=== PATIENT | female | born 1985 | race Caucasian/White ===

== ENCOUNTER → 2020-08-04 11:32 | Outpatient (CLI) | payer BC, SELFPAY ==
--- NOTE | ~2020-08-04 | US_ITS ---
EXAMINATION: US thyroid EXAM DATE: 08/04/2020 11:53 INDICATION: Thyroid nodule. TECHNIQUE: Multiple grayscale and Doppler images of the thyroid were obtained (by a technologist who performed the scan) and subsequently reviewed. Individual nodules and recommendations may be reporte d in accordance with TI-RADS system as designated by the 2017 ACR White Paper TI-RADS committee. The re is no prior study for comparison. FINDINGS: Right thyroid lobe measures 3.9 x 1.3 x 1.2 cm and the left measuring 4.1 x 1.1 x 1.1 cm. Relatively homogeneous thyroid echogenicity without focal nodule identified. Dimensions are within normal size l imits. IMPRESSION: 1. Unremarkable thyroid ultrasound exam. Reviewed, dictated and finalized at location G.
== END ==
PROVIDERS: PCP Internal Medicine; Visit Provider Nurse Practitioner
DX: E04.1 Nontoxic single thyroid nodule (principal)
CPT/HCPCS: 76536

== ENCOUNTER 2020-09-15 11:05 | Outpatient (CLI) | payer BC, SELFPAY ==
--- NOTE | ~2020-09-15 | MR_ITS ---
EXAMINATION: MR brain/brain stem wo/w con EXAM DATE: 09/15/2020 12:31 INDICATION: Abnormal gait and mobility. TECHNIQUE: Magnetic resonance imaging (MRI) of the brain/brain stem obtained without contrast. Sagit sadia T1, axial diffusion, gradient echo (T2*), T1, T2, FLAIR sequences obtained. Patient was then inj ected intravenous Multihance contrast, I'm unable to find a dose at this time but an addendum can be added. Axial and coronal postcontrast T1 weighted sequences obtained. There is no prior study for co mparison. FINDINGS: There are no areas of restricted diffusion to suggest acute infarction. There is no acute hemorrhage seen on the T2*, a hemosiderin sensitive sequence. No intraparenchymal brain mass. The ve ntricles are normal in size. There are no extra-axial collections. Flow voids are seen in the cereb ral arteries on the T2-weighted sequences consistent with their expected patency. The orbits are unr emarkable. Soft tissue is unremarkable. There are no areas of abnormal enhancement on the post con trast images. IMPRESSION: 1. Unremarkable brain MRI exam. Reviewed, dictated and finalized at location G.
[2020-09-15 11:55] LABS: Estimated Glomerular Filt Rate > 60
== END 2020-09-15 11:06 | disposition home or self-care (01) ==
LOC: ANHIMG 11:09
PROVIDERS: PCP Internal Medicine; Visit Provider Nurse Practitioner
DX: R26.89 Other abnormalities of gait and mobility (principal)
CPT/HCPCS: 70553; A9577

== ENCOUNTER 2020-09-15 18:40 | Emergency (ER) | payer BC, SELFPAY ==
[2020-09-15 18:59] VITALS: BP 121/81; PULSE 77; RESP 20; TEMP 37.4; O2SAT 100
--- NOTE | 2020-09-15 19:01 | ED.EXTPRO ---
HPI - Extremity Problem General Chief complaint: Extremity Problem,Nontraumatic Stated complaint: L HAND THROBBING Time Seen by Provider: 09/15/20 19:15 Source: patient and RN notes reviewed Mode of arrival: ambulatory Limitations: no limitations History of Present Illness HPI Narrative: 34-year-old female presents with concern for arm pain after an IV infiltration today. Reports she had a IV in the left antecubital today while getting MRI. Reports injection was going through the IV when the IV infiltrated. Reports a new IV was started and the infusion was completed through a new IV. She reports pain proximal to the infiltration site, tingling in the left lower arm and hand. MD Complaint: extremity pain Related Data Home Medications Medication Instructions Recorded Confirmed diazepam 09/15/20 eszopiclone mg 09/15/20 fluoxetine mg 09/15/20 nicotine 09/15/20 trazodone 09/15/20 Allergies Allergy/AdvReac Type Severity Reaction Status Date / Time EGG WHITES Allergy Mild Anaphylactic Uncoded 09/15/20 18:59 Shock Review of Systems Review of Systems: Narrative: CONSTITUTIONAL: Denies malaise, chills, sweats, or fever. CARDIOVASCULAR: Denies chest pain, palpitations, or edema. RESPIRATORY: Denies cough or dyspnea. SKIN: Denies open skin, ulcerations. Reports pain, swelling and bruising to the left upper arm MUSCULOSKELETAL: Denies musculoskeletal pain NEUROLOGIC: Denies numbness, weakness. Reports tingling in the left hand All systems reviewed & are unremarkable except as noted in HPI and below PMFSH Comments At time of signature, agree with nursing past medical, surgical, social and family history. There is no relevant family history pertinent to the presenting complaint Exam Narrative: Exam Narrative: GENERAL: Well-appearing, well-nourished, and in no acute distress. HEAD: Normocephalic, atraumatic. EYES: PERRLA, conjunctivae clear, and EOMI. ENT: Mucous membranes moist. NECK: Supple. No lymphadenopathy CHEST: Clear to auscultation. No respiratory distress. HEART: Regular rate and rhythm. SKIN: Warm, dry. Mild hematoma proximal to the left antecubital space. No other bruising, swelling noted. No open skin or ulcerations noted NEURO: Alert and oriented x3. PSYCH: Normal mood and affect Course Course Emergency Course: Patient is aware of diagnosis, understands and agrees to treatment plan. Anticipatory guidance given. Patient agrees to follow-up as directed and is aware of reasons to seek care at the emergency department. Portions of this record may have been created with voice recognition software Vital Signs Vital signs: Reviewed. MDM - Extremity (Nontraumatic) MDM Narrative Medical decision making narrative: Exam findings show no acute concerns or changes; patient is non-toxic appearing and is in no distress. Patient is appropriate for outpatient treatment and follow-up. Critical Care Time Critical Care Time Critical Care Time: No Discharge Plan Discharge Clinical Impression: Arm pain Qualifiers: Laterality: left Qualified Code(s): M79.602 - Pain in left arm IV infiltration Qualifiers: Encounter type: initial encounter Qualified Code(s): T80.1XXA - Vascular complications following infusion, transfusion and therapeutic injection, initial encounter Patient Disposition: Home, Self-Care Condition: Stable Instructions: IV Infiltration (ED) Additional Instructions: Apply ice to the infiltration site, elevate. You may use Tylenol or ibuprofen for pain. If you develop any open sores, fever, decreased circulation in your lower arm or hand you should go to the emergency room. Follow-up with the provider of the MRI tomorrow if symptoms do not improve. Prescriptions: No Action fluoxetine 40 mg capsule RF: 0 trazodone 50 mg tablet RF: 0 diazepam 2 mg tablet RF: 0 nicotine 21 mg/24 hr patch 24 hour RF: 0 eszopiclone 3 mg tablet
== END 2020-09-15 19:39 | disposition home or self-care (01) ==
PROVIDERS: Emergency Provider Nurse Practitioner; PCP Internal Medicine
DX: M79.632 Pain in left forearm (principal); T80.1XXA Vascular complications following infusion, transfusion and therapeutic injection, initial encounter
CPT/HCPCS: 99202; G0463

== ENCOUNTER 2020-09-19 17:54 | Emergency (ER) | payer BC, SELFPAY ==
--- NOTE | ~2020-09-19 | XR_ITS ---
EXAMINATION: XR ankle LT min 3V DATE: 09/19/2020 18:17 INDICATION: Left ankle pain, initial encounter TECHNIQUE: Anteroposterior, lateral, mortise, and additional oblique view of the ankle were obtained. COMPARISON: None. FINDINGS: There is an acute, traumatic, closed, oblique fracture of the distal fibula which extends t o the level of the tibial plafond. There are 2 mm of lateral displacement of the distal fracture frag ment. Ankle soft tissue swelling is present. The remaining osseous structures are unremarkable. IMPRESSION: 1. Oblique fracture of the distal fibula extending to the level of the tibial plafond. Reviewed, dictated and finalized at location A. IMPRESSION: 1. Oblique fracture of the distal fibula extending to the level of the tibial p suri.
[2020-09-19 18:02] VITALS: BP 128/75; PULSE 92; RESP 20; TEMP 37.6; O2SAT 99
--- NOTE | 2020-09-19 19:07 | ED.GENADULT ---
HPI - General Adult General Chief complaint: Extremity Injury, Lower Stated complaint: left leg injury Time Seen by Provider: 09/19/20 18:19 Source: patient, family and RN notes reviewed Mode of arrival: ambulatory Limitations: no limitations History of Present Illness HPI narrative: Patient is a 34-year-old female who presents to emergency department for evaluation of left ankle pain after injuring the ankle while rollerskating patient notes aching swelling pain to the lateral aspect of the left ankle patient denies other injuries or complaints has not had anything for pain presents per private vehicle in no distress Related Data Home Medications Medication Instructions Recorded Confirmed diazepam 09/15/20 eszopiclone mg 09/15/20 fluoxetine mg 09/15/20 nicotine 09/15/20 trazodone 09/15/20 Allergies Allergy/AdvReac Type Severity Reaction Status Date / Time EGG WHITES Allergy Mild Anaphylactic Uncoded 09/19/20 18:04 Shock Review of Systems Review of Systems: All systems reviewed & are unremarkable except as noted in HPI and below PMFSH Past Medical History Medical History Anxiety Depression Social History Social History Gender identity (if verbalized by the patient): Female Exam Narrative: GENERAL: Well-appearing, well-nourished, and in no acute distress. HEAD: Normocephalic, atraumatic. EYES: PERRLA and EOMI. ENT: Nares clear, no rhinorrhea or epistaxis. Mucous membranes moist. CHEST: Clear to auscultation. No respiratory distress. No wheezes rales or rhonchi HEART: Regular rate and rhythm. No murmur heard. EXTREMITIES: Bruising swelling and tenderness of the lateral left ankle joint SKIN: Warm, dry, no rash. NEURO: No focal deficits. Alert and oriented x3. Neurovascularly intact PSYCH: Normal mood and affect. Course Course Emergency Course: Patient in the room no distress aware of case findings treatment plan diagnosis and discussion of orthopedic surgeon placed an OCL splint and crutches Consultations Consultation #1: Spoke with Dr. Zhong who will follow the patient in clinic Date: 09/19/20 Vital Signs Vital signs: Vital Signs Temperature 99.6 F 09/19/20 18:02 Pulse Rate 92 09/19/20 18:02 Respiratory Rate 20 09/19/20 18:02 Blood Pressure 128/75 09/19/20 18:02 Pulse Oximetry 99 09/19/20 18:02 Temperature 99.6 F 09/19/20 18:02 Pulse Rate 92 09/19/20 18:02 Respiratory Rate 20 09/19/20 18:02 Blood Pressure 128/75 09/19/20 18:02 Pulse Oximetry 99 09/19/20 18:02 Procedures Orthopedic Splinting/Casting Injury #1: Splinting/Casting Date: 09/19/20 Splinting/Casting Time: 19:13 Side: left Lower Extremity Immobilizer: posterior splint Splint: customized in ED OCL: short leg Pre-Procedure Neuro Vascular Exam: normal Post-Procedure Neuro Vascular Exam: normal Other Orthopedic Equipment: crutches Medical Decision Making MDM Narrative Medical decision making narrative: Patients injury or pain is consistent with musculoskeletal etiology. No signs of neurological or vascular compromise on exam. Compartments and tissues are soft without signs of compartment syndrome. Pain is felt appropriate for further evaluation on an outpatient basis. Vital Signs Vital Signs: Vital Signs Temperature 99.6 F 09/19/20 18:02 Pulse Rate 92 09/19/20 18:02 Respiratory Rate 20 09/19/20 18:02 Blood Pressure 128/75 09/19/20 18:02 Pulse Oximetry 99 09/19/20 18:02 Temperature 99.6 F 09/19/20 18:02 Pulse Rate 92 09/19/20 18:02 Respiratory Rate 20 09/19/20 18:02 Blood Pressure 128/75 09/19/20 18:02 Pulse Oximetry 99 09/19/20 18:02 Imaging Data Radiologist's impression: ITS Impressions Ankle X-Ray 09/19/20 18:24 IMPRESSION: 1. Oblique fracture of the distal f
[2020-09-19 19:22] VITALS: BP 137/86; PULSE 77; RESP 18; TEMP 37.2; O2SAT 100
[2020-09-19] MEDS: HYDROcodone/acetaminophen (*CRX) 5-325 MG TABLET 1 TAB PO (19:33)
== END 2020-09-19 20:40 | disposition home or self-care (01) ==
PROVIDERS: Emergency Provider Emergency Medicine; PCP Internal Medicine
DX: S82.832A Other fracture of upper and lower end of left fibula, initial encounter for closed fracture (principal); F41.9 Anxiety disorder, unspecified; F32.9 Major depressive disorder, single episode, unspecified; Y93.51 Activity, roller skating (inline) and skateboarding; V00.121A Fall from non-in-line roller-skates, initial encounter
CPT/HCPCS: 29515; 73610; 99284; A9270

== ENCOUNTER 2020-09-20 00:53 | Emergency (ER) | payer BC, SELFPAY ==
[2020-09-20 00:54] VITALS: BP 128/78; PULSE 91; RESP 18; TEMP 36.9; O2SAT 98
--- NOTE | 2020-09-20 01:01 | ED.GENADULT ---
HPI - General Adult General Chief complaint: Unspecified Stated complaint: Toes numb, worsening pain, seen earlier Time Seen by Provider: 09/20/20 01:01 History of Present Illness HPI narrative: 35 yo female presents to the ED for ankle pain. She was seen here earlier today for an ankle fracture. She had a splint placed and was prescribed norco. She now returns for continued pain. She unwrapped her splint which only made her pain worse. Related Data Home Medications Medication Instructions Recorded Confirmed diazepam 09/15/20 eszopiclone mg 09/15/20 fluoxetine mg 09/15/20 nicotine 09/15/20 trazodone 09/15/20 Allergies Allergy/AdvReac Type Severity Reaction Status Date / Time EGG WHITES Allergy Mild Anaphylactic Uncoded 09/19/20 18:04 Shock Review of Systems Review of Systems: All systems reviewed & are unremarkable except as noted in HPI and below Respiratory: Respiratory: Denies dyspnea Neurologic: Reports numbness and Denies weakness PMFSH Past Medical History Medical History Anxiety Depression Social History Social History Gender identity (if verbalized by the patient): Female Exam Const: General: healthy appearing, no acute distress and alert Orientation/consciousness: patient oriented x3 HENMT: Head: normal to inspection Neck: Neck: normal visual inspection Resp: Effort & Inspection: normal respiratory effort Auscultation: clear to auscultation bilaterally, no rales, no rhonchi and no wheezes Cardio: Jugular venous distension: no JVD Rate: regular rate Rhythm: regular rhythm Heart sounds: no murmurs Other: 2+ DP bilaterally GI: Inspection: non-distended GI Palp: Yes Soft to palpation and No Tenderness to palpation present (GI) Skin: General skin exam: normal color Neuro: General: patient oriented x3 and moves all extremities Speech: normal speech Other: sensation and motor intact Extrem: General: no edema Other: splint out of place. Mild swelling. Psych: Appearance: well kempt Affect: normal affect Course Vital Signs Vital signs: Vital Signs Temperature 36.9 C 09/20/20 00:54 Pulse Rate 91 09/20/20 00:54 Respiratory Rate 18 09/20/20 00:54 Blood Pressure 128/78 08/01/21 00:54 Pulse Oximetry 98 09/20/20 00:54 Temperature 36.9 C 09/20/20 00:54 Pulse Rate 91 09/20/20 00:54 Respiratory Rate 18 09/20/20 00:54 Blood Pressure 128/78 09/20/20 00:54 Pulse Oximetry 98 09/20/20 00:54 Medical Decision Making Vital Signs Vital Signs: Vital Signs Temperature 36.9 C 09/20/20 00:54 Pulse Rate 91 09/20/20 00:54 Respiratory Rate 18 09/20/20 00:54 Blood Pressure 128/78 09/20/20 00:54 Pulse Oximetry 98 09/20/20 00:54 Temperature 36.9 C 09/20/20 00:54 Pulse Rate 91 09/20/20 00:54 Respiratory Rate 18 09/20/20 00:54 Blood Pressure 128/78 09/20/20 00:54 Pulse Oximetry 98 09/20/20 00:54 Discharge Plan Discharge Clinical Impression: Ankle fracture, left Patient Disposition: Home, Self-Care Condition: Stable Instructions: Ankle Fracture (ED) Prescriptions: No Action fluoxetine 40 mg capsule RF: 0 trazodone 50 mg tablet RF: 0 diazepam 2 mg tablet RF: 0 nicotine 21 mg/24 hr patch 24 hour RF: 0 eszopiclone 3 mg tablet RF: 0 hydrocodone-acetaminophen 5-325 mg tablet 1 tablet PO Q6H PRN (Reason: pain) Qty: 10 RF: 0 Follow-up/Referrals: Green,Kb Quesada MD [Primary Care Provider] - Saulo Willams MD [Physician] -
--- NOTE | 2020-09-20 01:59 | PC.NURSE ---
pt reports she is here for increased pain and tingling to right foot. able to move all toes. intact sensation to sole of foot. cap. refill < 2 sec. pt states I think my foot shifted in the splint . splint does not appear too tight, and able to fit 1-2 fingers between splint and skin. reports splint applied today approx 1700 for left ankle fracture. notified.
--- NOTE | 2020-09-20 02:19 | PC.NURSE ---
pt reports she took 600 mg of ibuprofen prior to arrival in ED approx. 2100. also reports she has norco at home that was prescribed and she took it approx 1999. arrives with tasha wrap NOT in place. 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 notified.
== END 2020-09-20 03:12 | disposition home or self-care (01) ==
PROVIDERS: Emergency Provider Emergency Medicine; PCP Internal Medicine
DX: S82.892D Other fracture of left lower leg, subsequent encounter for closed fracture with routine healing (principal); F41.9 Anxiety disorder, unspecified; F32.9 Major depressive disorder, single episode, unspecified; X58.XXXD Exposure to other specified factors, subsequent encounter
CPT/HCPCS: 29515; 99199; 99282; A9270

== ENCOUNTER 2022-10-28 23:03 | Emergency (ER) | payer BC, SELFPAY ==
--- NOTE | ~2022-10-28 | XR_ITS ---
XR chest 1V portable DATE: 10/29/2022 00:59 INDICATION: Chest pain TECHNIQUE: Portable AP chest on 11/08/2022 at 0056 hours COMPARISON: None FINDINGS: Normal heart size. No hilar or mediastinal enlargement. No pulmonary infiltrate or consolid ation, pleural effusion or pulmonary vascular congestion or pneumothorax is detected. Included skeletal structures are unremarkable. IMPRESSION: No active cardiopulmonary disease Reviewed, dictated and finalized at location A.
--- NOTE | ~2022-10-28 | CT_ITS ---
EXAMINATION: CT brain wo con DATE: 10/29/2022 00:55 INDICATION: Confusion. Dizziness. TECHNIQUE: Computed tomography (CT) of the head was performed without intravenous contrast. The mA wa s adjusted according to patient size. Iterative reconstruction technique was employed. Exam dose: 60 5.33 mGy-cm total exam DLP. COMPARISON: 09/15/2020 MRI brain/brainstem FINDINGS: No intracranial mass lesion or hemorrhage or cerebrovascular accident, midline shift or mas s effect is detected. No subdural or epidural hematoma. Normal ventricular size. There is extensive opacification of the right maxillary sinus. Included paranasal sinuses and mastoid air cells otherwise are unremarkable. No fracture or bone destruction of the cranial vault. IMPRESSION: No significant intracranial abnormality or skull fracture Extensive opacification of right maxillary sinus Reviewed, dictated and finalized at Location A. Reviewed, dictated and finalized at location A.
[2022-10-28 23:04] VITALS: BP 166/83; PULSE 90; RESP 18; TEMP 36.7; O2SAT 100
--- NOTE | 2022-10-29 00:43 | ECG_ITS ---
Measurements Intervals [place] Rate: 83 P: 71 MI: 138 QRS: 96 QRSD: 101 T: 63 QT: 390 QTc: 461 Interpretive Statements SINUS RHYTHM RIGHT AXIS DEVIATION BASELINE WANDER- I, II, AVR BORDERLINE ECG NO PREVIOUS ECG AVAILABLE FOR COMPARISON Electronically Signed On 10-29-2022 6:59:16 CDT by Shemar Roman D.O.
[2022-10-29 01:10] VITALS: BP 132/86; PULSE 90; RESP 18; O2SAT 100; O2SAT 98
[2022-10-29 01:43] LABS: Basophils Percent Auto 0.3 % (0.2-1.2); Eosinophils Percent Auto 0.5 % (0-4.4); Hematocrit 33.3 % (37.0-47.0); Hemoglobin 10.7 g/dL (12.0-15.0); Immature Granulocyte Absolute 0.04 K/mm3 (0.00-0.031); Immature Granulocyte Percent A 0.6 % (0-0.5); Lymphocytes Absolute Auto 1.77 K/mm3 (0.9-3.2); Lymphocytes Percent Auto 27.1 % (18.3-44.2); Mean Corpuscular HGB Conc 32.1 g/dl (32-36); Mean Corpuscular Hemoglobin 27.9 pg (26-34); Mean Corpuscular Volume 86.9 fl (80-100); Mean Platelet Volume 10.8 fl (7.4-10.4); Monocytes Absolute Auto 0.7 K/mm3 (0.1-0.6); Monocytes Percent Auto 10.4 % (2.6-8.5); Neutrophils Percent Auto 61.1 % (45.5-73.1); Platelet Count Result 266 k/mm3 (150-375); Red Blood Count 3.83 M/mm3 (4.2-5.4); Red Cell Distribution Width 14.7 % (11.5-14.5); White Blood Count 6.5 K/mm3 (4.5-10.0)
--- NOTE | 2022-10-29 01:44 | ED.GENADULT ---
HPI - General Adult General Chief complaint: Unspecified Stated complaint: not able to sleep Time Seen by Provider: 10/28/22 23:55 History of Present Illness HPI narrative: this is a 37-year-old female history of anxiety depression and PTSD presenting with 1 week of difficulty sleeping. Patient says that her anxiety has been getting steadily worse and she is feeling more depressed. She quit her job 2 days ago because she was feeling overwhelmed. She has not been able to sleep. She also has psychomotor retardation. She denies SI or HI. She is compliant with most of her psychologic meds but has stopped taking her ariprazole. Denies use of drugs or alcohol. Denies any physical complaints this time. Related Data Home Medications Medication Instructions Recorded Confirmed diazepam 2 mg tablet 09/15/20 eszopiclone 3 mg tablet mg 09/15/20 fluoxetine 40 mg capsule mg 09/15/20 nicotine 21 mg/24 hr daily 09/15/20 transdermal patch trazodone 50 mg tablet 09/15/20 Allergies Allergy/AdvReac Type Severity Reaction Status Date / Time EGG WHITES Allergy Mild Anaphylactic Uncoded 09/19/20 18:04 Shock [facility] Past Medical History Medical History Anxiety Depression Social History Social History Gender identity (if verbalized by the patient): Female Exam Narrative: APPEARANCE: No apparent distress. Head: atraumatic. EYES: EOMI, NOSE: Atraumatic NECK: Trachea midline RESPIRATORY: No increased rate of breathing, CTAB CARDIOVASCULAR: RRR, ABDOMINAL: Non-distended MUSCULOSKELETAl: No obvious deformities NEURO: Alert. Cranial nerves 2-12 grossly intact. Sensation light touch, motor function cerebellar function intact for 4 extremities. Gait exam was normal. SKIN:: Warm, dry. Normal color PSYCHIATRIC: Slow speech with poor eye contact Course Vital Signs Vital signs: Vital Signs Temperature 98.1 F 10/28/22 23:04 Pulse Rate 90 10/28/22 23:04 Respiratory Rate 18 10/28/22 23:04 Blood Pressure 166/83 H 10/28/22 23:04 Pulse Oximetry 100 10/28/22 23:04 Oxygen Delivery Room Air 10/28/22 23:04 Temperature 98.1 F 10/28/22 23:04 Pulse Rate 90 10/29/22 01:10 Respiratory Rate 18 10/29/22 01:10 Blood Pressure 132/86 10/29/22 01:10 Pulse Oximetry 98 10/29/22 01:10 Oxygen Delivery Room Air 10/29/22 01:10 Medical Decision Making MDM Narrative Medical decision making narrative: -Course: 37-year-old female with anxiety depression presenting with decreased functionality, psychomotor retardation and sleep difficulty. Screening psychologic lab work has been ordered. Patient is medically cleared for psychiatric evaluation/admission/transport. Patient was evaluated by crisis Center. She has a outpatient follow-up. Strong support at home. Discharged with return precautions. -DDX includes but is not limited to: Depression, anxiety, hypothyroid -Co-morbidities complicating care: Hailey-Danlos, anxiety depression PTSD -Social determinants of health: used to work at a salon but quit 2 days ago, Lives with -Independent interpretation of studies: labwork normal. UDS positive for cannabinoids. Chest x-ray within normal limits. Preliminary head CT was unremarkable. Independent EKG interpretation: Rhythm [sinus], Rate [83], [place] -[normal], [place] -[normal], QRS [narrow], QTC [normal], T waves -[negative for concerning inversions], ST Segments - [Negative for concerning elevations] Final interpretations: [Normal Sinus Rhythm] -Discussion of Management/Consultants:Crisis center -Shared decision making / Disposition: Discharged. Vital Signs Vital Signs: Vital Signs Temperature 98.1 F 10/28/22 23:04 Pulse Rate 90 10/28/22 23:04 Respiratory Rate 18 10/28/22 23:04 Blood Pressure 166/83 H 10/28/22 23:04 Pulse Oximetry 100 10/28/22 23
[2022-10-29 01:56] LABS: Alanine Aminotransferase 19 U/L (6-35); Albumin Level 4.2 g/dL (3.5-5.1); Alkaline Phosphatase 46 U/L (38-126); Anion Gap 12 mmol/L (8-16); Aspartate Amino Transferase 22 U/L (14-36); Bilirubin,Total 0.2 mg/dL (0.2-1.3); Blood Urea Nitrogen 12 mg/dL (7-17); Calcium 9.1 mg/dL (8.4-10.2); Carbon Dioxide 21 mmol/L (22-30); Chloride 104 mmol/L (98-107); Estimated CRCL calculation 105 ml/min; Estimated Glomerular Filt Rate > 60; Ethanol < 10 mg/dL (<10); Glucose 121 mg/dL (65-110); Lipase 99 U/L (23-300); Magnesium 1.9 mg/dL (1.6-2.3); Potassium 3.4 mmol/L (3.4-5.0); Sodium 137 mmol/L (137-145)
[2022-10-29 02:17] LABS: Influenza A QL RT-PCR Negative (Negative); Influenza B QL RT-PCR Negative (Negative); RSV RNA, RT-PCR Negative (Negative); SARS-CoV-2 RNA PCR Negative (Negative)
[2022-10-29 02:46] LABS: Appearance Urine Cloudy (Clear); Bacteria Urine None Seen /hpf; Bilirubin Urine Negative (Negative); Blood Urine Negative (Negative); Color Urine Yellow (Yellow); Glucose Urine UA Negative (Negative); Ketones Urine Negative (Negative); Leukocyte Esterase Ur Negative LEU/UL (Negative); Nitrate Urine Negative (Negative); Non Pathogenic Casts 0-2; Protein Urine Negative (Negative); RBC Urine 0-2 /hpf (0-2); Specific Grav Ur 1.015 (1.001-1.035); Squamous Epithelial Cell Urine None seen /hpf (Few); Urobilinogen Urine 0.2 mg/dL (<2.0); WBC Urine 0-5 /hpf; pH Urine 6.5 (5.0-9.0)
[2022-10-29 02:56] LABS: Add Urine Microscopic? YES
[2022-10-29 02:59] LABS: Amphetamine Screen Urine Negative (Negative); Barbiturate Screen Urine Negative (Negative); Benzodiazepines Screen Urine Negative (Negative); Cannabinoid Screen Urine Positive (Negative); Cocaine Screen Urine Negative (Negative); Methadone Screen Urine Negative (Negative); Opiate Screen Urine Negative (Negative); Phencyclidine Screen Urine Negative (Negative)
[2022-10-29 05:11] VITALS: BP 142/88; PULSE 82; RESP 15; O2SAT 98
== END 2022-10-29 05:13 | disposition home or self-care (01) ==
PROVIDERS: Emergency Provider Emergency Medicine; PCP Internal Medicine
DX: F32.A Depression, unspecified (principal); G47.00 Insomnia, unspecified; Z20.822 Contact with and (suspected) exposure to COVID-19; Z79.899 Other long term (current) drug therapy
CPT/HCPCS: 36415; 70450; 71045; 80053; 80307; 81001; 81025; 83690; 83735; 84443; 85025; 87637; 93005; 99284

== ENCOUNTER 2023-02-11 16:32 | Emergency (ER) | payer BC, SELFPAY ==
[2023-02-11 17:23] VITALS: BP 128/80; PULSE 89; RESP 18; TEMP 36.9; O2SAT 99
== END 2023-02-11 17:30 | disposition left against medical advice (07) ==
LOC: ANHED 19:15
PROVIDERS: PCP Internal Medicine
DX: K08.89 Other specified disorders of teeth and supporting structures (principal)
CPT/HCPCS: 99199

== ENCOUNTER 2023-05-05 08:51 | Emergency (ER) | payer BC, SELFPAY ==
--- NOTE | ~2023-05-05 | XR_ITS ---
EXAMINATION: XR hand LT min 3V, XR wrist LT min 3V DATE: 05/05/2023 11:09 INDICATION: Left hand and wrist pain post fall TECHNIQUE: 1. Posteroanterior, ulnar deviation, oblique, and lateral views of the left wrist were obtained. 2. Dorsal palmar, oblique and lateral views of the left hand were obtained. COMPARISON: None. FINDINGS: Alignment of the left hand and wrist is normal. No fracture identified. Joint spaces are normal. No focal soft tissue swelling. IMPRESSION: 1. . Negative left hand and wrist radiographs. Reviewed, dictated and finalized at location B. IMPRESSION: 1. . Negative left hand and wrist radiographs.
--- NOTE | ~2023-05-05 | XR_ITS ---
EXAMINATION: XR knee LT min 4V DATE: 05/05/2023 11:09 INDICATION: Anterior left knee pain post fall TECHNIQUE: Anteroposterior, sunrise, oblique and crosstable lateral views of the left knee were obtai robert COMPARISON: None. FINDINGS: Alignment is normal. No fracture. Joint spaces appear normal on nonweightbearing imaging. No joint e ffusion/layering lipohemarthrosis. Mild prepatellar soft tissue swelling. IMPRESSION: 1. No left knee joint effusion or osseous abnormality. Reviewed, dictated and finalized at location B.
--- NOTE | ~2023-05-05 | XR_ITS ---
EXAMINATION: XR knee RT min 4V DATE: 05/05/2023 11:09 INDICATION: Right knee pain post fall TECHNIQUE: Anteroposterior, sunrise, oblique and crosstable lateral views of the right knee were obta ined COMPARISON: None. FINDINGS: Alignment is normal. No fracture. Joint spaces are normal on nonweightbearing imaging. No joint effu dmitry/layering lipohemarthrosis. Mild prepatellar soft tissue swelling. IMPRESSION: 1. No right knee joint effusion or osseous abnormality. Reviewed, dictated and finalized at location B.
--- NOTE | ~2023-05-05 | CT_ITS ---
EXAMINATION: CT facial bones wo con DATE: 05/05/2023 11:04 INDICATION: Face injury. TECHNIQUE: Computed tomography (CT) of the facial bones and maxillofacial region was performed withou t intravenous contrast. Automated exposure control and iterative reconstruction technique were employ ed. The dose-length product was 666.25 mGy-cm. COMPARISON: Head CT 10/29/2022 FINDINGS: There is leftward deviation of superior nasal septum and rightward deviation of inferior na araceli septum. No fracture. There is mild mucosal thickening in the paranasal sinuses. The mastoid air c ells are normal. The orbits are normal. IMPRESSION: 1. No fracture. Reviewed, dictated and finalized at location A. IMPRESSION: 1. No fracture.
--- NOTE | ~2023-05-05 | CT_ITS ---
EXAMINATION: CT brain wo con DATE: 05/05/2023 11:04 INDICATION: Head injury. TECHNIQUE: Computed tomography (CT) of the head was performed without intravenous contrast. The mA wa s adjusted according to patient size. Iterative reconstruction technique was employed. The dose-lengt h product was 681.00 mGy-cm. COMPARISON: Head CT 10/29/2022 FINDINGS: There is no intracranial hemorrhage, acute infarction, or abnormal intracranial mass lesion . The ventricles are normal in size. There is mild mucosal thickening in the paranasal sinuses. The o rbits are normal. The mastoid air cells are normal. IMPRESSION: 1. Normal brain. Reviewed, dictated and finalized at location A. IMPRESSION: 1. Normal brain.
[2023-05-05 08:52] VITALS: BP 145/89; PULSE 88; RESP 15; TEMP 36.6; O2SAT 100
--- NOTE | 2023-05-05 09:56 | ED.HEATRA ---
HPI - Head Injury General Chief complaint: Head Injury Stated complaint: facial injuries Time Seen by Provider: 05/05/23 09:04 History of Present Illness HPI Narrative: 37-year-old female presents to emergency department for facial and head injuries after mechanical fall yesterday. Patient states around 1:00 p.m. she tripped over grate and landed on her face. She is reporting with abrasions to her inner and outer lip, abrasions to her nose, abrasions her palms and pain to her left wrist and bilateral knees. She denies vision changes, focal numbness or weakness, neck pain or back pain, other injuries acquired. States she took Tylenol ibuprofen yesterday with some improvement in pain. Last tetanus unknown. Related Data Home Medications Medication Instructions Recorded Confirmed diazepam 2 mg tablet 09/15/20 eszopiclone 3 mg tablet mg 09/15/20 fluoxetine 40 mg capsule mg 09/15/20 nicotine 21 mg/24 hr daily 09/15/20 transdermal patch trazodone 50 mg tablet 09/15/20 Allergies Allergy/AdvReac Type Severity Reaction Status Date / Time egg Allergy Severe Anaphylactic Verified 05/05/23 09:58 Shock kiwi Allergy Hives Verified 05/05/23 08:56 pineapple Allergy Hives Verified 05/05/23 08:56 Review of Systems Review of Systems: CONSTITUTIONAL: Denies fever, chills, or sweats. EYES: Denies visual changes, redness, or discharge. ENT: Denies rhinorrhea, congestion, sore throat, or otalgia. CARDIOVASCULAR: Denies chest pain, palpitations, or edema. RESPIRATORY: Denies cough or dyspnea. GASTROINTESTINAL: Denies abdominal pain, nausea, vomiting, or diarrhea. GENITOURINARY: Denies dysuria or hematuria. SKIN: See HPI MUSCULOSKELETAL: See HPI NEUROLOGIC: Denies headache, numbness, or weakness. PSYCHIATRIC: Denies anxiety or depression. PMFSH Past Medical History Medical History Anxiety Depression Social History Social History Gender identity (if verbalized by the patient): Female Exam Narrative: GENERAL: Well-appearing, well-nourished, and in no acute distress. HEAD: Normocephalic EYES: PERRLA and EOMI. ENT: Nares clear, no rhinorrhea or epistaxis. Mucous membranes moist. NECK: Supple. CHEST: Clear to auscultation. No respiratory distress. HEART: Regular rate and rhythm. No murmur heard. Normal peripheral pulses. ABDOMEN: Soft, nontender, nondistended, normal active bowel sounds. EXTREMITIES: Left upper extremity Tenderness to the 5th metacarpal and distal radius and ulna without obvious deformity, edema or ecchymosis. No snuffbox tenderness. Full range of motion of wrist bilateral wrist and fingers. Tenderness throughout bilateral knees without overlying edema, ecchymosis or obvious deformity. Full range of motion. DP and radial pulses 2+. Cap refill less than 2. Sensation is intact throughout. SKIN: Superficial abrasions to her nasal bridge. Deeper abrasion to the philtrum. Superficial abrasions to the bilateral palms. Bleeding controlled throughout. The deep structures or foreign bodies visualized. NEURO: No focal deficits. Alert and oriented x3. Cranial nerves 2-12 intact. Strength 5/5 in BUE and BLE. Sensation intact throughout. Normal [id number]. Course Vital Signs Vital signs: Vital Signs Temperature 97.8 F 05/05/23 08:52 Pulse Rate 88 05/05/23 08:52 Respiratory Rate 15 05/05/23 08:52 Blood Pressure 145/89 H 05/05/23 08:52 Pulse Oximetry 100 05/05/23 08:52 Oxygen Delivery Room Air 05/05/23 08:52 Temperature 98.4 F 05/05/23 11:31 Pulse Rate 74 05/05/23 12:20 Respiratory Rate 15 05/05/23 12:20 Blood Pressure 106/67 05/05/23 12:20 Pulse Oximetry 100 05/05/23 12:20 Oxygen Delivery Room Air 05/05/23 08:52 MDM - Head Injury MDM Narrative Medical decision making narrative: 37-year-old female presents to the e
[2023-05-05] MEDS: HYDROcodone/acetaminophen (*CRX) 5-325 MG TABLET 1 TAB PO (10:10)
[2023-05-05] MEDS: TETANUS,DIPHTHERIA,AC PERTUSSIS ADULT (0.5 ML) BOOSTRIX IM (10:13)
[2023-05-05 11:31] VITALS: BP 111/79; PULSE 74; RESP 18; TEMP 36.9; O2SAT 100
[2023-05-05 12:20] VITALS: BP 106/67; PULSE 74; RESP 15; O2SAT 100
== END 2023-05-05 12:47 | disposition home or self-care (01) ==
PROVIDERS: Emergency Provider Physician Assistant; PCP Internal Medicine
DX: S00.31XA Abrasion of nose, initial encounter (principal); S00.511A Abrasion of lip, initial encounter; S00.512A Abrasion of oral cavity, initial encounter; S60.511A Abrasion of right hand, initial encounter; S60.512A Abrasion of left hand, initial encounter; S83.92XA Sprain of unspecified site of left knee, initial encounter; S63.502A Unspecified sprain of left wrist, initial encounter; S83.91XA Sprain of unspecified site of right knee, initial encounter; Z23 Encounter for immunization; F41.9 Anxiety disorder, unspecified; F32.A Depression, unspecified; W18.09XA Striking against other object with subsequent fall, initial encounter
CPT/HCPCS: 70450; 70486; 73110; 73130; 73564; 90471; 90715; 99284; A9270